=== PATIENT | female | born 1985 | race American Indian/Alaskan Native ===

== ENCOUNTER 2021-11-15 07:31 | Inpatient (IN) | payer OTHER ==
--- NOTE | 2021-11-14 09:00 | History and Physical Report ---
History of Present Illness Date of examination: 11/14/21 Date of admission: 11/15/21 Chief complaint: fibroid, heavy bleeding History of present illness: Pt presents with h/o enlarged abdomen and heavy menstrual bleeding. Pt with several large fibroids and 24 to 26 wks size uterus on exam. Treatment options were d/w pt. She desires fertility and desires myomectomy. I d/w pt the she is a risk for transfusion of blood products, infection, and hysterectomy as a life saving measure. She expressed understanding. Consents signed and placed on the chart. [employer] TE[employer] History Uterine Surgery (not C/S): negative Operations: negative Hospitalizations: negative Anesthesia Complications: negative Abnormal PAP: negative Uterine Anomaly: negative MATEUSZ Exposure: negative Infertility: negative Infection History HIV Risk Eval: no Personal hx. of genital herpes: no Partner hx. of genital herpes: no Hx of STD: None Active Medications (reviewed today): iron unspecified unspecified (ferrous sulfate) hydrochlorothiazide 25 mg tablet (hydrochlorothiazide) Current Allergies (reviewed today): No known allergies Past Medical History: Anemia Fibroids Hypertension Past Surgical History: negative Past History Past Medical History: hypertension Past Surgical History: no surgical history Family/Genetic History: none Social history: no significant social history Medications and Allergies Allergies Allergy/AdvReac Type Severity Reaction Status Date / Time No Known Allergies Allergy Unverified 11/10/21 07:24 Home Medications Medication Instructions Recorded Confirmed Last Taken Type Ferrous Sulfate [Iron 325 MG] 325 mg PO DAILY 11/14/21 11/15/21 11/13/21 09:00 History amLODIPine [Norvasc] 7.5 mg PO DAILY 11/14/21 11/15/21 11/15/21 05:00 History Review of Systems All systems: negative - Physical Exam Cardiovascular: Normal S1, Normal S2 Lungs: Positive: Clear to auscultation, Normal air movement Abdomen: Positive: normal appearance, soft, mass Genitourinary (Female): Positive: other (deferred until EUA) Results Result Diagrams: 11/14/21 06:00 11/14/21 06:00 All other labs normal. Assessment and Plan - Patient Problems (1) Hypertension Current Visit: No Status: Acute Plan to address problem: -stable -s/p medical clearance by haul driver (2) Fibroid Current Visit: No Status: Acute Plan to address problem: -desires myomectomy -admit and prepare for surgery -consents signed and placed on the chart. (3) Menorrhagia with regular cycle Current Visit: No Status: Acute Plan to address problem: see above
[2021-11-14 11:20] LABS: Basophils % (Auto) 0.9 % (0.0-1.8); Eosinophils # (Auto) 0.5 K/mm3 (0.0-0.4); Eosinophils % (Auto) 12.8 % (0.0-4.3); Hematocrit 39.5 % (30.3-42.9); Hemoglobin 12.6 gm/dl (10.1-14.3); Lymphocytes # (Auto) 1.2 K/mm3 (1.2-5.4); Lymphocytes % (Auto) 27.9 % (13.4-35.0); Mean Corpuscular HGB Conc 32 % (30-34); Mean Corpuscular Volume 89 fl (79-97); Monocytes # (Auto) 0.3 K/mm3 (0.0-0.8); Platelet Count 255 K/mm3 (140-440); Red Blood Count 4.45 M/mm3 (3.65-5.03); Red Cell Distribution Width 16.4 % (13.2-15.2)
[2021-11-14 11:44] LABS: Blood Urea Nitrogen 8 mg/dL (7-17); Calcium 9.5 mg/dL (8.4-10.2); Hemolysis Index 2
[2021-11-14 11:52] LABS: BUN/Creatinine Ratio 11
--- NOTE | 2021-11-14 12:32 | Anesthesia Consultation ---
Anesthesia Consult and Med Hx Date of service: 11/15/21 - Airway Anesthetic Teeth Evaluation: Good, Partials ROM Head & Neck: Adequate Mental/Hyoid Distance: Adequate Mallampati Class: Class III Intubation Access Assessment: Possibly Difficult - Pulmonary Exam CTA: Yes - Cardiac Exam Cardiac Exam: RRR - Pre-Operative Health Status ASA Pre-Surgery Classification: ASA2 Proposed Anesthetic Plan: General Nerve Block: TAP - Pulmonary Hx Smoking: No Hx Respiratory Symptoms: No - Cardiovascular System Hx Hypertension: Yes (DBP elevated in PAT; advised to take antihypertensive DOS) Hx Heart Attack/AMI: No Hx Percutaneous Transluminal Coronary Angioplasty (PTCA): No Hx Cardia Arrhythmia: No - Central Nervous System CVA: No - Endocrine Hx Renal Disease: No Hx Liver Disease: No Hx Insulin Dependent Diabetes: No Hx Non-Insulin Dependent Diabetes: No Hx Thyroid Disease: No - Other Systems Hx Obesity: Yes (BMI 38) - Additional Comments Anesthesia Medical History Comments: No prior GA. No FHx anesthetic com plications.
[~2021-11-15 07:31] MED LIST: ACETAMINOPHEN 500 MG TAB PO SCH; CELECOXIB 200 MG CAP PO NR; GABAPENTIN 300 MG CAP PO NR; LACTATED RINGERS 1,000 ML IV SCH; MIDAZOLAM 2 MG/2 ML INJ IV NR; SCOPOLAMINE TRANSDERMAL PATCH 72 HR TD NR; fentaNYL 100 MCG/2 ML INJ IV PRN
[2021-11-15] MEDS ORDERED: dexAMETHasone 4 MG/ML VIAL ONE (07:41)
[2021-11-15] MEDS ORDERED: BUPIVACAINE/PF (0.25%) 2.5 MG/ML 30 ML VIAL INFILTRATI ONE (07:41)
[2021-11-15] MEDS ORDERED: SODIUM CHLORIDE 0.9% 100 ML ONE (10:15)
[2021-11-15] MEDS ORDERED: VASOPRESSIN 20 UNIT/1 ML INJ ONE (10:15)
[2021-11-15] MEDS ORDERED: CITRIC ACID-SOD CITRATE 500 ML IV ONE ×2 (10:16→14:51)
[2021-11-15] MEDS ORDERED: ONDANSETRON 4 MG/2 ML INJ IV PRN ×2 (10:48→15:46)
[2021-11-15] MEDS ORDERED: HYDROmorphone 1 MG/1 ML INJ IV PRN (10:48)
--- NOTE | 2021-11-15 10:48 | Anesthesia Day of Surgery ---
Anesthesia Day of Surgery - Day of Surgery Patient Examined: Yes Patient H&P Reviewed: Yes Patient is NPO: Yes
[2021-11-15] MEDS ORDERED: ceFAZolin/Water 2 GM/20 ML 2 GM/20 ML SYRINGE IV ONE (11:18)
[2021-11-15] MEDS ORDERED: LIDOCAINE MPF (2%) 20 MG/1 ML VIAL 5 ML ONE (11:34)
[2021-11-15] MEDS ORDERED: ROCURONIUM 50 MG/5 ML INJ IV ONE ×2 (11:34→13:19)
[2021-11-15] MEDS ORDERED: HYDROmorphone 1 MG/1 ML INJ ONE (11:34)
[2021-11-15] MEDS ORDERED: ONDANSETRON 4 MG/2 ML INJ ONE (11:34)
[2021-11-15] MEDS ORDERED: fentaNYL 100 MCG/2 ML INJ ONE (11:35)
[2021-11-15] MEDS ORDERED: propofoL 200 MG/20 ML VIAL IV ONE (11:35)
[2021-11-15] MEDS ORDERED: ceFAZolin/STERILE WATER 2 GM/20 ML SYRINGE IV NR (12:00)
[2021-11-15] MEDS ORDERED: LACTATED RINGERS 1,000 ML ONE ×3 (12:41→15:49)
[2021-11-15] MEDS ORDERED: dexAMETHasone 20 MG/5 ML VIAL ONE (12:41)
[2021-11-15] MEDS ORDERED: ePHEDrine SULFATE 50 MG/1 ML INJ ONE (12:46)
[2021-11-15] MEDS ORDERED: VASOPRESSIN 20 UNIT/1 ML INJ IM ONE (12:52)
[2021-11-15] MEDS ORDERED: SODIUM CHLORIDE 0.9% 100 ML IVPB IV ONE (12:53)
[2021-11-15] MEDS ORDERED: CITRIC ACID-SOD CITRATE SOLN 500 ML IV SOLN IV ONE ×2 (12:54)
[2021-11-15] MEDS ORDERED: SODIUM CHLORIDE 0.9% IRR 1,500 ML BOTTLE IR ONE ×3 (12:54)
[2021-11-15] MEDS ORDERED: ALBUMIN HUMAN 5% (12.5 GM/250 ML) INJ IV ONE ×2 (14:31→15:44)
[2021-11-15 14:33] LABS: Hematocrit 30.3 % (30.3-42.9); Hemoglobin 9.4 gm/dl (10.1-14.3)
[2021-11-15] MEDS ORDERED: NEOSTIGMINE 10MG/10 ML INJ MDV ONE (15:35)
[2021-11-15] MEDS ORDERED: HYDROcodone/ACETAMINOPHEN 5-325 MG TAB PO PRN (15:46)
[2021-11-15] MEDS ORDERED: ACETAMINOPHEN 325 MG TAB PO PRN (15:46)
[2021-11-15] MEDS ORDERED: MORPHINE 4 MG/1 ML INJ IV PRN (15:46)
[2021-11-15] MEDS ORDERED: IBUPROFEN 800 MG TAB PO PRN (15:46)
[2021-11-15] MEDS ORDERED: PHENYLEPHRINE/NS 1,000 MCG/10 ML SYRINGE (OR USE) IV ONE ×2 (15:50)
--- NOTE | 2021-11-15 16:01 | Operative Report ---
Operative Report Operative Report: Date of procedure: 11/15/2021 Pre-operative diagnosis: Menorrhagia Dysmenorrhea Large uterine fibroids Post-operative diagnosis: Same Procedure name(s): 1. Abdominal myomectomy 2. Examine anesthesia Surgeon: Dr. Yudi Klein Wood Treating Inspector: Dr. Ruthie Villegas Anesthesia: Gen. endotracheal anesthesia EBL: 2700 mL Urine output: Approximately 30 mL of urine out throughout the duration of the procedure that was clear but concentrated Fluids: 3 L Cell Saver: 1 L Findings: Grossly enlarged uterus. Several uterine fibroids ranging in size from approximately 1 cm to well over 10 cm in size. Grossly normal fallopian tubes and ovaries bilaterally Left peritubular cyst Indications: Patient presented for abdominal myomectomy. All risk benefits and alternatives were discussed with the patient. Consents were signed and placed on the chart. Procedure: Procedure: Patient was taken to the operating room wishes placed under general endotracheal anesthesia in dorsal lithotomy position. The patient was then prepped and draped in normal sterile fashion. A midline skin incision was made below the umbilicus with the scalpel and carried down to the underlying layer of fascia with the Bovie.. The fascia was incised in the midline and this incision was extended superiorly and inferiorly with the Bovie. The The rectus muscles were bluntly divided in the midline. The peritoneum was identified and entered into sharply. This incision was extended superiorly and inferiorly via blunt and sharp dissection. Pitressin was placed subserosally in the midline. Several fibroids were removed to allow debulking of the uterus. The uterus was then exteriorized.. The myomectomy was performed in usual fashion. Uterine incisions were closed using several layers with 0 Vicryl. Excellent hemostasis was noted. There was copiously irrigated. Surgicel and Interceed were placed over the uterine incision.. Cell Saver team was present during the procedure and patient did receive 1 L of red blood cells back. The uterus was returned to the abdomen. The fascia was closed in the midline using 0 looped PDS this incision also included the anterior rectus muscle and peritoneum. At the subcutaneous fat was reapproximated using 2-0 Vicryl in interrupted sutures. The skin was reapproximated with 4-0 Monocryl in a running fashion with Sponge lap and needle counts were all correct 3. Patient was taken to the recovery room awake and in stable condition.
[2021-11-15] MEDS ORDERED: ePHEDrine SULFATE 50 MG/1 ML INJ IM ONE (17:00)
[2021-11-15 17:17] LABS: Hematocrit 28.2 % (30.3-42.9); Hemoglobin 9.4 gm/dl (10.1-14.3)
[2021-11-15] MEDS ORDERED: KETOROLAC 30 MG/1 ML INJ IV NR (17:30)
--- NOTE | 2021-11-15 18:20 | Post Anesthesia Evaluation ---
- Post Anesthesia Evaluation Patient Participated: Yes (easily arousible, oriented) Airway Patent: Yes Stable Respiratory Function: Yes Nausea/Vomiting: No Temp > 96.8F: Yes Pain Manageable: Yes Adequeate Hydration: Yes (minimal UOP initially but slight improvement prior to transfer) Anesthesia Complications: No Other Comments: Patient hypotensive on arrival to PACU, presumably 2/2 acute blood loss. H/H drawn in PACU lower that preop baseline but stable relative to intraop H/H and above transfusion threshhold. Received additional albumin an IVF bolus w/ BP stabalizing at SBP >90 and MAP >65 for at least 90 mins prior to transfer to floor.
[2021-11-15] MEDS: ceFAZolin/NS 1 GM/50 ML 1 GM/50 ML BAG IV SCH (20:52)
[2021-11-15] MEDS: MORPHINE 2 MG/1 ML INJ IV PRN (20:52)
[2021-11-16] MEDS: ceFAZolin/NS 1 GM/50 ML 1 GM/50 ML BAG IV SCH (04:43)
[2021-11-16] MEDS: MORPHINE 2 MG/1 ML INJ IV PRN (04:46)
[2021-11-16 04:51] LABS: Hematocrit 26.9 % (30.3-42.9); Hemoglobin 8.9 gm/dl (10.1-14.3)
[2021-11-16] MEDS: traMADol 50 MG TAB PO PRN ×2 (04:55→21:32)
--- NOTE | 2021-11-16 09:03 | Progress Note ---
Assessment and Plan - Patient Problems (1) Hypertension Current Visit: No Status: Acute Plan to address problem: currently not taking meds due to hypotension after sx will con't to closely monitor. (2) Fibroid Current Visit: No Status: Acute (3) Menorrhagia with regular cycle Current Visit: No Status: Acute (4) Symptomatic anemia Current Visit: Yes Status: Acute Plan to address problem: -serial h/h -x fuse if hgb 7 or less due to the hypotension and tachycardia -plan of care d/w pt and s/o. All questions were addressed and answered. (5) S/P myomectomy Current Visit: Yes Status: Acute Plan to address problem: -doing well post op. no s/sx of active bleeding -routine post op care -IS and ambulation -ADAT Subjective - Subjective Date of service: 11/16/21 Principal diagnosis: POD #1 s/o abdmonimal myomectomy Interval history: Pt has no c/o this am and states that her pain is well controlled. I d/w the findings of surgery the EBL she had as well as the cell saver she received. I d/w pt that she will need serial h/h for determine if another transfusion is needed. Current hgb is >7 but pt remain does have hypotension at times and now is having mild tachycardia with movement. She denies any sob, dizziness or chest pain. She and s/o expressed understanding of the procedure and possible need for more blood. Patient reports: appetite normal, voiding normally, pain well controlled, no dizzy ambulation Objective - Vital Signs Latest vital signs: Vital Signs Temp Pulse Resp BP BP Pulse Ox 11/16/21 08:58 16 11/16/21 08:50 98.4 F 106 H 18 93/56 99 11/16/21 05:55 18 11/16/21 04:55 18 11/16/21 04:53 102 H 99/68 99 11/16/21 00:11 98.5 F 100 H 20 95/64 97 11/15/21 22:00 18 99 11/15/21 21:22 18 11/15/21 20:52 18 11/15/21 18:45 98.4 F 86 21 94/63 100 11/15/21 18:40 73 20 92/61 100 11/15/21 18:30 86 20 95/61 100 11/15/21 18:15 82 18 94/60 100 11/15/21 18:00 72 17 95/61 100 11/15/21 17:45 73 18 96/60 99 11/15/21 17:30 75 20 94/59 98 11/15/21 17:15 70 18 91/60 98 11/15/21 17:00 98.1 F 70 18 91/60 98 11/15/21 16:45 68 17 90/58 97 11/15/21 16:30 67 19 86/55 99 11/15/21 16:15 68 15 85/57 100 11/15/21 16:02 67 16 81/54 100 11/15/21 15:57 74 14 80/51 100 11/15/21 15:52 98.2 F 77 12 85/45 100 11/15/21 11:32 14 11/15/21 11:27 68 12 102/79 100 11/15/21 11:24 67 12 114/83 100 11/15/21 11:21 78 13 121/79 100 11/15/21 11:19 77 14 122/84 100 11/15/21 11:14 78 14 120/82 100 11/15/21 11:05 70 15 114/82 100 11/15/21 10:56 14 11/15/21 10:52 77 21 92/54 100 Intake and Output 11/15/21 11/16/21 11/16/21 22:59 06:59 14:59 Intake Total 290 360 320 Output Total 330 450 0 Balance -40 -90 320 Intake: IV 50 ANCEF/NS 1 GM/50 ML 1 gm 50 In 50 ml @ 100 mls/hr IV Q8H [facility] Rx#:[id number] Oral 240 360 320 Output: Urine 330 450 0 Indwelling Catheter 300 450 Void 0 Other: Total, Intake Amount 240 120 320 Total, Output Amount 300 250 0 Voiding Method Indwelling Catheter - Exam Cardiovascular: Present: Normal S1, Normal S2 Lungs: Present: Clear to auscultation, Normal air movement Abdomen: Present: normal appearance, soft, normal bowel sounds. Absent: distention, tenderness, guarding Uterus: Present: normal, firm, fundal height at umbilicus Extremities: Present: normal. Absent: tenderness, edema Deep Tendon Reflex Grade: Normal +2 Incision: Present: normal, dry, intact, dressed - Labs Labs: Abnormal lab results 11/15/21 11/15/21 11/16/21 Range/Units 14:17 17:00 04:36 Hgb 9.4 L D 9.4 L 8.9 L (10.1-14.3) gm/dl Hct 28.2 L 26.9 L (30.3-42.9) %
[2021-11-16 12:24] LABS: Hematocrit 25.3 % (30.3-42.9); Hemoglobin 8.2 gm/dl (10.1-14.3)
--- NOTE | 2021-11-16 13:24 | Event Note ---
Date: 11/16/21 Repeat h/h stable. Will con't to closely monitor and repeat in the am or sooner pending pt symptoms. BP is improved and so in tachycardia. Will Con't to closely monitor.
[2021-11-17 06:20] LABS: Hemoglobin 6.7 gm/dl (10.1-14.3)
[2021-11-17 06:24] LABS: Hematocrit 19.4 % (30.3-42.9)
--- NOTE | 2021-11-17 08:55 | Progress Note ---
Assessment and Plan - Patient Problems (1) S/P myomectomy Current Visit: Yes Status: Acute (2) Hypertension Current Visit: No Status: Acute Plan to address problem: currently not taking meds due to hypotension after sx will con't to closely monitor. (3) Fibroid Current Visit: No Status: Acute Plan to address problem: -s/p myomectomy (4) Menorrhagia with regular cycle Current Visit: No Status: Acute (5) Symptomatic anemia Current Visit: Yes Status: Acute Plan to address problem: hgb <7 at this time x fuse one unit and then re-evaluate as per protocol due to blood shortages at this time -pt agrees with plan of care and all questions were addressed and answered -pt show no s/sx of active bleeding and is having no vaginal bleeding. The h/h drop seems appropriate with blood loss during surgery. Subjective - Subjective Principal diagnosis: POD #2 s/o abdmonimal myomectomy Interval history: Pt c/o having some dizziness this am. Blood transfusion was ordered for her but pt wanted to speak with provider first. Pt states she desires the transfusion at this time. All risk, benefits and alternative were d/w pt and questions were addressed and answered. Patient reports: appetite normal, voiding normally, dizzy ambulation (very mild), pain well controlled, ambulating normally, no nauseated Objective - Vital Signs Latest vital signs: Vital Signs Temp Pulse Resp BP BP Pulse Ox 11/17/21 06:41 97.6 F 98 H 18 94/64 92 11/17/21 00:14 97.9 F 101 H 22 99/60 94 11/16/21 21:32 100 11/16/21 20:48 98.2 F 96 H 18 96/56 96 11/16/21 16:00 98.2 F 92 H 20 97/62 96 11/16/21 12:00 98.6 F 96 H 20 102/62 100 11/16/21 09:15 100 11/16/21 08:58 16 Intake and Output 11/16/21 11/17/21 11/17/21 22:59 06:59 14:59 Intake Total 740 240 Output Total 300 400 Balance 440 -160 Intake: Oral 560 Intake, Free Water 180 240 Output: Urine 300 400 Void 300 400 Stool 0 Other: Total, Intake Amount 240 Total, Output Amount 300 400 Voiding Method Toilet # Voids Void 1 1 - Exam Cardiovascular: Present: Normal S1, Normal S2 Lungs: Present: Clear to auscultation, Normal air movement Abdomen: Present: normal appearance, soft, normal bowel sounds. Absent: distention, tenderness, guarding Incision: Present: normal, dry, intact (steristrips with old dried blood present but incision otherwise c/d/i) - Labs Labs: Abnormal lab results 11/15/21 11/16/21 11/17/21 Range/Units 08:10 11:58 05:54 Hgb 8.2 L 6.7 L (10.1-14.3) gm/dl Hct 25.3 L 19.4 L* (30.3-42.9) % Crossmatch See Detail
[2021-11-17] MEDS ORDERED: SODIUM CHLORIDE 0.9% 500 ML 500 ML IV NR (09:00)
[2021-11-17] MEDS ORDERED: ACETAMINOPHEN 500 MG TAB PO NR (09:00)
[2021-11-17] MEDS ORDERED: diphenhydrAMINE 50 MG/ML VIAL IV NR (09:00)
--- NOTE | 2021-11-17 15:04 | Event Note ---
Date: 11/17/21 As per RN pt feeling much better since the transfusion. h/h pending. Hypotension and tachycardia have resolved. Will con't to monitor. if hgb>7 will d/c home on po iron and f/u in office in one week.
[2021-11-17 16:20] LABS: Hematocrit 23.7 % (30.3-42.9); Hemoglobin 7.8 gm/dl (10.1-14.3)
[2021-11-17] MEDS: traMADol 50 MG TAB PO PRN (16:45)
--- NOTE | 2021-11-17 17:23 | Discharge Summary ---
Providers - Providers Date of Admission: 11/15/21 07:31 Date of discharge: 11/18/21 Attending physician: JOHNY ROSALES Primary care physician: GENO SULLIVAN Hospitalization Reason for admission: other (fibroids) Procedure: other (abdominal myomectomy) Procedure details: see op note Incision: normal, dry, intact Other procedures: other (transfusion of one unit PRBC(POD#2) and 1L of cell saver(intraop)) Hospital course: Pt s/p myomectomy that was complicated by blood loss of 2.7 liters. She did get cell saver of 1L back and had 1unit of PRBCs post op day number two. Pt was symptomatic on POD#2 but anemia symptoms resolved after unit of blood given and she desired d/c home. Pt was to be d/c home if remained AFVSS. Condition at discharge: Good Disposition: 01 HOME / SELF CARE / HOMELESS - Discharge Diagnoses (1) S/P myomectomy Status: Acute (2) Hypertension Status: Acute (3) Fibroid Status: Acute (4) Menorrhagia with regular cycle Status: Acute (5) Symptomatic anemia Status: Acute Plan - Discharge Medications Prescriptions: Docusate Sodium [Colace] 100 mg PO BID PRN #60 capsule PRN Reason: Constipation Ferrous Sulfate [Feosol 325 MG tab] 325 mg PO QDAY #60 tablet Ibuprofen [Motrin 800 MG tab] 800 mg PO Q8HR PRN #30 tablet PRN Reason: Pain, Moderate (4-6) oxyCODONE /ACETAMINOPHEN [Percocet 5/325] 1 tab PO Q4HR #30 tab - Provider Discharge Summary Activity: routine, no sex for 6 weeks, no heavy lifting 4 weeks Diet: routine Instructions: routine Additional instructions: [] Smoking cessation referral if applicable(refer to patient education folder for contact #) [] Refer to [facility] Booklet Call your doctor immediately for: * Fever > 100.5 * Heavy vaginal bleeding ( >1 pad per hour) * Severe persistent headache * Shortness of breath * Reddened, hot, painful area to leg or breast * Drainage or odor from incision. * Keep incision clean and dry at all times and follow doctor's instructions regarding bathing/showering - Follow up plan Follow up: GENO SULLIVAN MD [Primary Care Provider] - 7 Days Forms: [facility] Discharge Summary, Discharge Signature Page
[2021-11-17 20:52] VITALS: BP 103/64
== END 2021-11-17 21:30 | disposition home or self-care (01) | DRG 743 ==
LOC: 3A 07:31 → OB 16:23
PROVIDERS: ADMIT Obstetrics & Gynecology; ATTEND Obstetrics & Gynecology
PROC: 0UB90ZZ Excision of Uterus, Open Approach (ICD-10-PCS; principal; 2021-11-15)
PROC: 30233N1 Transfusion of Nonautologous Red Blood Cells into Peripheral Vein, Percutaneous Approach (ICD-10-PCS; 2021-11-17)
DX: D25.9 Leiomyoma of uterus, unspecified (principal); N92.0 Excessive and frequent menstruation with regular cycle; I10 Essential (primary) hypertension; D64.9 Anemia, unspecified; E66.9 Obesity, unspecified; Z68.38 Body mass index [BMI] 38.0-38.9, adult; Z20.822 Contact with and (suspected) exposure to COVID-19
CPT/HCPCS: 36415; 64450; 80048; 84703; 85014; 85018; 85025; 86850; 86900; 86901; 86920; 88305; G0378; J3490; J7120; C1765; J0690; J1100; J1170; J1885; J2250; J2270; J2370; J2405; J2704; J2710; J3010; P9016; P9045; U0003